=== PATIENT | male | born 2005 | race Caucasian/White ===

== ENCOUNTER 2023-08-23 09:05 | Emergency (ER) | payer SELFPAY ==
[~2023-08-23] VITALS: Ht 162.6 cm; Wt 64.0 kg
[2023-08-23 09:16] VITALS: O2SAT 100
[2023-08-23] MEDS: FLUORESCEIN SODIUM 1MG/STRIP RIGHTEYE ONE (10:21)
[2023-08-23] MEDS: TETRACAINE 0.5% OPHTH DROPS 4ML RIGHTEYE ONE (10:21)
[2023-08-23] MEDS ORDERED: CIPR2.5D20 RIGHTEYE (10:40)
[2023-08-23 11:05] VITALS: BP 101/66; PULSE 97; RESP 16; TEMP 98.6
== END 2023-08-23 11:06 | disposition home or self-care (01) ==
LOC: ER 09:05
DX: S05.01XA Injury of conjunctiva and corneal abrasion without foreign body, right eye, initial encounter (principal); X58.XXXA Exposure to other specified factors, initial encounter; Y93.89 Activity, other specified; Y92.89 Other specified places as the place of occurrence of the external cause; Y99.8 Other external cause status
CPT/HCPCS: 99283